=== PATIENT | female | born 2005 | race Caucasian/White ===

== ENCOUNTER 2023-06-07 18:28 | Emergency (ER) | payer BC, SELFPAY ==
[2023-06-07 18:36] VITALS: BP 124/77
--- NOTE | 2023-06-07 20:31 | ED.GENMED ---
History of Present Illness
<DOC Landrum - Last Filed: 06/07/23 23:24>
General
Chief Complaint: Abdominal Pain
Source: patient
Exam Limitations: none
Time Seen by Provider: 06/07/23 19:55
Nursing documentation reviewed up to this point in time: agreed with
Travel History
Have you had any contact with someone who has COVID-19?: No
Do you have any symptoms of coronavirus? Fever > 100 degrees, chills, cough, shortness of breath, sore throat, loss of taste or smell, muscle aches, or headache?: No
History of Present Illness
History of Present Illness:
18 yr old female brought to the ER by family for evaluation of abdominal pain. Patient has had intermittent issues since May 26. She started with irregular periods several months ago and has not gotten a period since March. She reports is not
sexually active. Patient has had intermittent issues with constipation and bloating. In addition patient has had pain throughout her lower abdomen worse over the past 1 and half weeks. She is a college student and parents report they have been
[id number] picking patient up because of pain. She does report the pain seems to get worse after eating but it is lower abdominal region.
She been evaluated by tool design draftsperson for pain and prescribed an ultrasound they have not gotten a chance to get the pelvic ultrasound.
Patient denies any associated fevers denies any urinary frequency urgency or dysuria.
Review of Systems
<DOC Landrum - Last Filed: 06/07/23 23:24>
Review of Systems
Allergies reviewed?: Yes
Constitutional: Reports no symptoms; Denies fever or chills
Respiratory: Reports no symptoms
Cardiac: Reports no symptoms
ABD/GI: Reports abdominal pain and constipated; Denies nausea, vomiting or diarrhea
: Reports no symptoms; Denies dysuria, frequency or flank pain
Musculoskeletal: Reports no symptoms
Skin: Reports no symptoms
Neurological: Reports no symptoms
Hematologic/Lymphatic: Reports no symptoms
Psychiatric: Reports no symptoms
Phy Exam
<DOC Landrum - Last Filed: 06/07/23 23:24>
General Physical Exam
General Presentation: no apparent distress
General age: appears stated age
General Skin: warm and dry
General Habitus: normal
General Mental: alert
General Hydration: appears well hydrated
Gastrointestinal Exam
Gastrointestinal Exam: non tender and soft
Neurological Exam
Neurological Exam: alert and oriented x3
Course
<DOC Landrum - Last Filed: 06/07/23 23:24>
Orders/Labs/Results
Orders:
Orders
06/07/23 20:31
Test Result ONCE
06/07/23 20:32
CT Abd/pel W Iv And Oral Contr Urgent
Comment:
Reason For Exam: abd pain
Iohexol [Omnipaque] See Protocol PO NOW STA
US Pelvis Only (non-obstetric) Urgent
Comment:
Reason For Exam: lower abd pain
06/07/23 21:20
Complete Blood Count/With Diff Urgent
06/07/23 23:19
Comprehensive Metabolic Panel Urgent
HCG, Serum Qualitative Screen Urgent
Lipase Urgent
06/07/23 23:26
Urinalysis Reflex To Culture Urgent
Date Specimen was Collected: 06/07/23
Time Specimen was Collected: 23:24
Abnormal Lab Results
06/07/23 06/07/23
21:20 23:19
Absolute Eos (auto) 0.9 H 10^3/uL
(0-0.7)
Eosinophils % 9.5 H %
(0-6)
BUN 18 H mg/dl
(7-17)
Lipase 335 H U/L
(23-300)
06/07/23 21:20
06/07/23 23:19
Vital Signs
Initial and Last Documented VS:
Initial Vital Signs
Temp Pulse Resp BP Pulse Ox
98.1 F 53 18 124/77 100
06/07/23 18:36 06/07/23 18:36 06/07/23 18:36 06/07/23 18:36 06/07/23 18:36
Last Documented Vital Signs
Temp Pulse Resp BP Pulse Ox
98.1 F 51 14 114/69 99
06/07/23 18:36 06/07/23 23:29 06/07/23 23:29 06/07/23 23:29 06/07/23 22:00
<Mic Edwards, DO - Last Filed: 06/08/23 00:53>
Orders/Labs/Results
Orders:
Orders
06/07/23 20:31
Test Result ONCE
06/07/23 20:32
CT Abd/pel W Iv And Oral Contr Urgent
Comment:
Reason For Exam: abd pain
Iohexol [Omnipaque] See Protocol PO NOW STA
US Pelvis Only (non-obstetric) Urgent
Comment:
Reason For Exam: lower abd pain
06/07/23 21:20
Complete Blood Count/With Diff Urgent
06/07/23 23:19
Comprehensive Metabolic Panel Urgent
HCG, Serum Qualitative Screen Urgent
Lipase Urgent
06/07/23 23:26
Urinalysis Reflex To Culture Urgent
Date Specimen was Collected: 06/07/23
Time Specimen was Collected: :24
Abnormal Lab Results
06/07/23 06/07/23
21:20 23:19
Absolute Eos (auto) 0.9 H 10^3/uL
(0-0.7)
Eosinophils % 9.5 H %
(0-6)
BUN 18 H mg/dl
(7-17)
Lipase 335 H U/L
(23-300)
06/07/23 21:20
06/07/23 23:19
Vital Signs
Initial and Last Documented VS:
Initial Vital Signs
Temp Pulse Resp BP Pulse Ox
98.1 F 53 18 124/77 100
06/07/23 18:36 06/07/23 18:36 06/07/23 18:36 06/07/23 18:36 06/07/23 18:36
Last Documented Vital Signs
Temp Pulse Resp BP Pulse Ox
98.1 F 51 14 114/69 99
06/07/23 18:36 06/07/23 23:29 06/07/23 23:29 06/07/23 23:29 06/07/23 22:00
<DOC Landrum - Last Filed: 06/07/23 23:24>
MDM/Problems Addressed
MDM/Problems Addressed:
Patient is a 18-year-old female who has had intermittent abdominal pain for the past several weeks she also has had intermittent irregular periods. She is not sexually active. She denies any UTI symptoms. She presents awake alert no acute
distress abdomen soft no true abdominal tenderness. Patient was seen by her FINISHING POWDER PRESS OPERATOR order ultrasound however has not had the ultrasound done. Ultrasound done here shows trace free fluid in the pelvis likely physiologic questionable none peristalsing
bowel versus dermoid in the left adnexa will further evaluate on CAT scan. Patient is ordered CAT scan with oral and IV contrast. Patient is afebrile white count normal chemistries pending at this time. Will plan for CT if negative will DC with
outpatient GI follow-up.
[id number] CAre of pt at this time transferred to DR Edwards
<Mic Edwards DO - Last Filed: 06/08/23 00:53>
*Critical Care Note
Total Time (30-74mins, 75-104mins- exclusive of procedures): Not Applicable
ED Attending Note
<DOC Landrum - Last Filed: 06/07/23 23:24>
-
Portions of this chart may have been created with voice recognition software.� Occasional wrong word or��sound alike� substitutions may have occurred due to the inherent limitations of voice recognition software.
<Mic Edwards DO - Last Filed: 06/08/23 00:53>
ED Attending Note
Patient seen and examined by attending physician: Yes
I performed the substantive portion of visit, reviewed & personally made and approve the management plan that is documented in note by myself or SPENCER.: Yes
ED Attending Note:
Seen with MANAGEMENT RECRUITER examined independently agree with assessment and plan in summary 1 to 2 weeks of lower abdominal pain worse with eating, worse with salad she did eat [employer] with no symptoms, no pain now, workup negative here saw tool design draftsperson
recently we will start some Bentyl plan diet GI PCP follow-up ER for worsening symptoms reviewed with patient and parents extensively
Discharge Plan
Departure
Patient Disposition: Home (Routine Discharge)
Date of Disposition: 06/08/23
Time of Disposition: 00:50
Patient with high blood pressure during this ER visit?: No
Condition: Good
Discharge Problem:
Abdominal pain
Instructions: Abdominal Pain
Prescriptions:
New
dicyclomine 10 mg capsule
10 mg PO QID PRN (Reason: abdominal cramps) Qty: 14 0RF
ondansetron 4 mg tablet,disintegrating
4 mg PO TIDPRN PRN (Reason: nausea/vomiting) Qty: 14 0RF
No Action
No Meds [No Current Medications]
0
Referrals:
Helga Bearden MD [Family Provider] -
Activity Restrictions/Additional Instructions:
[place] diet, nothing fatty or spicy, limit your dairy intake
Follow-up with your primary care provider, expect a call from [facility] gastroenterology
Interventions
Interventions:
*Risk Screen - Suicide Last Done: 06/07/23 20:31
*General Assessment Last Done: 06/07/23 20:31
*Neglect/Abuse Screening Last Done: 06/07/23 20:31
ED- Fall Risk Assessment Last Done: 06/07/23 23:10
*ED COVID-19 Vaccine History Last Done: 06/07/23 20:31
ZM-Paebts-Hanzodkduw Assessment Last Done: 06/07/23 23:10
Discharge Date and Time
Print Language: PRYDEINIG
[2023-06-07] MEDS: OMNIPAQUE 50 ML PO (21:18)
[2023-06-07 21:28] LABS: % Basophils 0.6 % (0-2); % Eosinophils 9.5 % (0-6); % Immature Granulocytes 0.2 % (0-0.5); % Lymphocytes 26.4 % (20.5-51.1); % Neutrophils 58.3 % (42.2-75.2); Absolute Basophils 0.1 10^3/uL (0-0.2); Absolute Eosinophils 0.9 10^3/uL (0-0.7); Absolute Lymphocytes 2.6 10^3/uL (1.2-3.4); Absolute Monocytes 0.5 10^3/uL (0.1-0.6); Absolute Neutrophils 5.7 10^3/uL (1.4-6.5); Hematocrit 44.3 % (37.0-47.0); Hemoglobin 15.3 g/dL (12.0-16.0); Mean Corp Hgb Conc. 34.5 g/dL (33.0-37.0); Mean Corpuscular Hgb 29.4 pg (27.0-31.0); Mean Platelet Volume 10.2 fL (7.4-10.4); Nucleated Red Blood Cells % 0 %; Platelet Count 280 10^3/uL (130-400); Red Blood Cell Count 5.21 10^6/uL (4.20-5.40); White Blood Cell Count 9.8 10^3/uL (4.8-10.8)
[2023-06-07 22:00] VITALS: BP 108/75
[2023-06-07 23:29] VITALS: BP 114/69
[2023-06-07 23:31] LABS: Urine Albumin Negative (Neg - Trace); Urine Bilirubin Negative (Negative); Urine Character Clear (Clear); Urine Color Yellow; Urine Glucose Negative (Negative); Urine Ketone Negative (Negative); Urine Leukocyte Negative (Negative); Urine Nitrite Negative (Negative); Urine Occult Blood Negative (Negative); Urine Urobilinogen Negative (Neg - 1+)
[2023-06-07 23:36] LABS: HCG, Serum Qualitative Screen Negative
[2023-06-07 23:38] LABS: ALT (SGPT) 17 U/L (0-35); AST (SGOT) 27 U/L (14-36); Albumin 4.9 g/dl (3.5-5.0); Alkaline Phosphatase 60 U/L (38-126); Blood Urea Nitrogen 18 mg/dl (7-17); Calcium 10.1 mg/dl (8.4-10.2); Carbon Dioxide 26 mmol/L (22-30); Chloride 103 mmol/L (98-107); Glucose 81 mg/dl (70-99); Lipase 335 U/L (23-300); Potassium 4.2 mmol/L (3.5-5.1); Sodium 135 mmol/L (135-145); Total Bilirubin 0.4 mg/dl (0.2-1.3); Total Protein 7.8 g/dl (6.3-8.2); eGFR > 60.00
[2023-06-08 01:10] VITALS: BP 110/69
== END 2023-06-08 01:10 | disposition home or self-care (01) ==
LOC: EMR 18:28
PROVIDERS: Emergency Medicine; Nurse Practitioner; EMERGENCY PHYSICIAN Emergency Medicine; FAMILY PHYSICIAN Psychologist Clinical
DX: R10.30 Lower abdominal pain, unspecified (principal); R14.0 Abdominal distension (gaseous)
CPT/HCPCS: 99285; 74177; 76856; 80053; 81003; 83690; 84703; 85025; Q9967

== ENCOUNTER 2023-08-11 08:42 | Emergency (ER) | payer BC, SELFPAY ==
[2023-08-11 08:53] VITALS: BP 106/61
[2023-08-11] MEDS: MOTRIN 600 MG PO (09:28)
[2023-08-11] MEDS: TYLENOL 650 MG PO (09:28)
--- NOTE | 2023-08-11 09:55 | ED.GENMED ---
History of Present Illness
General
Chief Complaint: Skin Problem
Source: patient and family
Exam Limitations: none
Time Seen by Provider: 08/11/23 09:05
Nursing documentation reviewed up to this point in time: agreed with
Travel History
Have you had any contact with someone who has COVID-19?: No
Do you have any symptoms of coronavirus? Fever > 100 degrees, chills, cough, shortness of breath, sore throat, loss of taste or smell, muscle aches, or headache?: No
History of Present Illness
History of Present Illness:
18-year-old female presenting to the emergency department today with concerns of swelling discomfort to the right armpit worsening over the past few days after shaving a few days ago. Denies any fevers or systemic symptoms.
Review of Systems
Review of Systems
Allergies reviewed?: Yes
All Other Systems: ROS reviewed and negative except as documented in HPI and ROS
Phy Exam
Physical Exam
Physical Exam:
GENERAL: Alert , in no apparent distress
EYE: pupils equal and reactive
NECK: Supple, no significant adenopathy.
ENT: o/p clr, mmm.
CARDIAC: Regular rate and rhythm .
LUNGS: Clear breath sounds bilaterally, no acute respiratory distress, no wheezes/rales/rhonchi
ABDOMEN: Soft, without focal tenderness, no r/g, no cvat
NEUROLOGICAL: Alert and oriented, no focal neuro deficits
SKIN: 1 cm area of fluctuance and induration as well as significant tenderness with small mount of surrounding redness and additional 1 cm in radius circumferentially warm and dry, skin intact.
MUSCULOSKELETAL: No edema, well perfused.
PSYCH: Normal and appropriate interaction.
Course
Orders/Labs/Results
Orders:
Orders
08/11/23 09:12
Acetaminophen [Tylenol] 650 mg PO NOW STA
Ibuprofen [Motrin] 600 mg PO NOW STA
08/11/23 09:53
Sulfamethox./Trimethoprim Ds [Bactrim Ds 800 mg/160 mg] 1 tablet PO NOW STA
Vital Signs
Initial and Last Documented VS:
Initial Vital Signs
Temp Pulse Resp BP Pulse Ox
97.4 F 52 18 106/61 100
08/11/23 08:53 08/11/23 08:53 08/11/23 08:53 08/11/23 08:53 08/11/23 08:53
Last Documented Vital Signs
Temp Pulse Resp BP Pulse Ox
97.4 F 52 18 106/61 100
08/11/23 08:53 08/11/23 08:53 08/11/23 08:53 08/11/23 08:53 08/11/23 08:53
Procedures
Incision/Drainage/Joint Aspiration
Right Proximal Arm:
Anethesia: 1% Lidocaine with Epi
Preparation: cleaned with Hibiclens
Type of procedure: incise and drain
Nature of site: abscess
Description of abscess: less than 3cm
Loculations broken up: Yes
How much fluid was obtained?: small amount
Fluid description: purulent
Treatment: left open for drainage
MDM/Problems Addressed
MDM/Problems Addressed:
18-year-old female presenting to the emergency department today with concerns of a worsening abscess to the right axilla over the past few days. This was incised and drained here without incident. No systemic symptoms. Started on Bactrim will
take this twice daily over the next 3 days to reduce risk of recurrence. Return precautions given otherwise stable for discharge.
*Critical Care Note
Total Time (30-74mins, 75-104mins- exclusive of procedures): Not Applicable
ED Attending Note
-
Portions of this chart may have been created with voice recognition software.� Occasional wrong word or��sound alike� substitutions may have occurred due to the inherent limitations of voice recognition software.
Discharge Plan
Departure
Patient Disposition: Home (Routine Discharge)
Date of Disposition: 08/11/23
Time of Disposition: 09:55
Patient with high blood pressure during this ER visit?: No
Condition: Good
Covid-19: Not Applicable
Discharge Problem:
Abscess of axilla, right
Instructions: Skin Abscess
Prescriptions:
New
sulfamethoxazole-trimethoprim [Bactrim DS] 800-160 mg tablet
1 tab PO BID 3 Days Qty: 6 0RF
No Action
No Meds [No Current Medications]
0
dicyclomine 10 mg capsule
10 mg PO QID PRN (Reason: abdominal cramps) Qty: 14 0RF
ondansetron 4 mg tablet,disintegrating
4 mg PO TIDPRN PRN (Reason: nausea/vomiting) Qty: 14 0RF
Activity Restrictions/Additional Instructions:
You came to the emergency department today with concerns of an abscess to your right armpit. This was drained. Please keep the area clean covered and use warm compresses to the area to ensure this continues draining. This should heal over the
next week or so. Please get close follow-up as an outpatient to get reassessed to ensure this is healing properly. Please take Bactrim twice daily over the next 3 days to reduce risk of recurrence. Additionally you can use chlorhexidine body wash
to help with bacterial counts to the area. Return to the emergency department for any worsening, new or concerning symptoms.
Interventions
Interventions:
*General Assessment Last Done: 08/11/23 08:53
*ED COVID-19 Vaccine History Last Done: 08/11/23 08:53
Discharge Date and Time
Print Language: SAO TOMEAN
[2023-08-11] MEDS: BACTRIM DS 800 MG/160 MG 1 TABLET PO (10:37)
== END 2023-08-11 10:56 | disposition home or self-care (01) ==
LOC: EMR 08:42
PROVIDERS: EMERGENCY PHYSICIAN Emergency Medicine; FAMILY PHYSICIAN Pediatrics
DX: L02.411 Cutaneous abscess of right axilla (principal); Z88.1 Allergy status to other antibiotic agents
CPT/HCPCS: 99283; 10060